=== PATIENT | female | born 1970 | race Caucasian/White ===

== ENCOUNTER → 2023-10-26 07:47 | Outpatient (REF) | payer OTHER, SELFPAY | LOC: HWRAD 07:47 | PROVIDERS: ATTENDING PHYSICIAN Student in an Organized Health Care Education/Training Program | DX: R10.11 Right upper quadrant pain (principal) | CPT/HCPCS: 76700 ==

== ENCOUNTER → 2024-06-19 06:23 | Day surgery (SDC) | payer OTHER, SELFPAY | LOC: GI 06:23 | PROVIDERS: ATTENDING PHYSICIAN Internal Medicine Gastroenterology | DX: Z09 Encounter for follow-up examination after completed treatment for conditions other than malignant neoplasm (principal); Z86.0101 Personal history of adenomatous and serrated colon polyps; K62.89 Other specified diseases of anus and rectum; Z98.890 Other specified postprocedural states | CPT/HCPCS: 45378 ==

== ENCOUNTER → 2024-08-07 09:36 | Outpatient (REF) | payer OTHER, SELFPAY | LOC: HWRAD 09:36 | DX: R10.84 Generalized abdominal pain (principal) | CPT/HCPCS: 76700 ==

== ENCOUNTER → 2024-08-18 16:00 | Outpatient (REF) | payer OTHER, SELFPAY | LOC: RAD 16:00 | DX: Z85.3 Personal history of malignant neoplasm of breast (principal); Z85.9 Personal history of malignant neoplasm, unspecified; R19.5 Other fecal abnormalities; R10.13 Epigastric pain; R10.11 Right upper quadrant pain | CPT/HCPCS: 74177; Q9967 ==